=== PATIENT | female | born 2000 | race Caucasian/White ===

== ENCOUNTER 2024-08-01 10:46 | Outpatient (AMB) | payer OTHER, SELFPAY ==
--- NOTE | 2024-08-01 10:47 | MHC.OFFVIS ---
Vital Signs 08/01/24 11:04 Height 5 ft 3 in Weight 143 lb 2 oz BMI 25.4 BP 120/61 Blood Pressure Location Lt brachial Position Sitting Pulse 81 Intake Visit Reasons: Anal fissure Intake Note: Patient is seen in office for evaluation of an anal fissure. Pt c/o: onset few yrs, bleeding with every bm, painful, constipation, straining, last 2 yrs had increase amount of blood, might had a hemorrhoid, went to urgent care and was told is anal fissure, itchy after bm, doing miralax & aloe vera with some relief gives her diarrhea and irritates the area Chip Unloader Required: No Accompanied by: Mother Allergies No Known Allergies Allergy (Verified 08/01/24 11:03) Medication List - Last Reconciled 08/01/24 by Ike Glass MD menthol-zinc oxide 0.44-20.6 % (Calmoseptine) 1 appl topical QID PRN HPI HPI Anal fissure: Details: 24 year female referred for an anal fissure. The patient says she has a long history of constipation since she was a baby. She therefore has had this pain in her anus with bowel movements for about 2 years now. She describes this as a sharp pain like a ?knife? cutting her anus with passage of stools. She says that this fingers as well after bowel movements She frequently sees bright blood per rectum with bowel movements. She also describes itching in the perianal area She states she had been seen last year by a surgeon and was diagnosed to have an anal fissure. She says she was tried on nitroglycerin without a significant improvement. She describes her pain to be severe sometimes She says she was also seen price clerk in the past because of chronic constipation and has been different bowel regimens. She says she has had colonoscopies before as well. [facility] Medical History Anal pain Surgical History H/O dilation and curettage (11/2023) Family History Paternal Aunt Skin cancer Social History Alcohol intake: current Alcohol intake frequency: holidays/special occasions only Review of Systems Const Denies chills and Denies fever(s) Card Denies chest pain, Denies dyspnea and Denies dyspnea on exertion Resp Denies cough, Denies dyspnea and Denies dyspnea on exertion GI Reports hematochezia, Denies change in bowel habits and Reports constipation Denies hematuria Musc Denies back pain and Denies limited range of motion Neuro Denies focal weakness and Denies convulsions Psych Denies depression and Denies mood swings Physical Exam Vital Signs: Last Vital Signs Pulse 81 08/01/24 11:04 BP 120/61 08/01/24 11:04 BMI result Body Mass Index 25.4 Const General: comfortable and no acute distress Orientation/consciousness: patient oriented x3 Neck Neck: Yes no lymphadenopathy Resp Auscultation: clear to auscultation bilaterally Cardio Rhythm: regular rhythm GI Other: Rectal exam shows tenderness in the anal canal, unable to tolerate digital exam. Note of a small chronically sclerosed external hemorrhoid anteriorly, no perianal lesions Palpation (GI): Soft to palpation, nontender and no guarding Neuro General: patient oriented x3 Assessment & Plan Assessment & Plan (1) Anal pain: Code(s): K62.89 - Other specified diseases of anus and rectum Category: Medical Plan: She describes severe anal pain with bowel movements which lingers afterwards. She says she has noticed bright blood as well frequently with bowel movements. She does have a long history of chronic constipation. Exam shows tenderness in the anal canal with hypertonicity. I am therefore unable do a full anoscopy or digital exam. She does state that she was diagnosed to have anal fissure. She says she was tried on nitroglycerin last year but she felt that this has not helped at all. I therefore explained to her the option of proceeding with exam under anesthesia and lateral internal sphincterotomy. I reviewed with the technique of this procedure. I discussed the risks including but not limited to bleeding, infections, sphincter dysfunction, poor healing, postop pain, as well as the benefits and alternatives. I reviewed with her what to expect postoperatively. She says she understands and wants to proceed She also complains of perianal itching so I am going to prescribe her Calmoseptine. Medications: New menthol-zinc oxide 0.44-20.6 % (Calmoseptine) 1 appl topical QID PRN 113 grams 0RF skin irritation around anus Coding Level of Care Code New Pt Level 3 (06787) Diagnoses Anal pain K62.89
[2024-08-01 11:04] VITALS: BP 120/61; PULSE 81; BMI 25.4
--- OUTSIDE RECORDS SUMMARY | 2024-08-01 12:29 | XMS_ITS | Clinical Summary ---
Author Organization [facility] 's Address [address] [place] [address] Care Team Providers Care Nonprofit Financial Controller Name Role Phone Aimee Alejandre MD Primary Care Provider [phone] Source Comments Please note that some or all of the patient's information could have additional privacy protections. State laws allow health care providers to render certain types of treatment to minors without parental consent. Please do not assume that this information can be shared solely by obtaining just the consent of the patient's parent/guardian. Please determine if all or part of the patient's care was rendered without parent/guardian involvement. And, if so, obtain the minor's consent prior to disclosure.[facility] Allergies No known active allergies Medications XOLAIR 150 mg/mL Syringe 12/12/2018 Active Active Problems Problem Noted Date Diagnosed Date Abnormal MRI of head 01/19/2019 Multiple somatic complaints 01/19/2019 Social History Tobacco Use Types Packs/Day Years Used Date Smoking Tobacco: Passive Smo ke Exposure - Never Smoker Comments:outside Comments Unknown Sex and Gender Information Value Date Recorded Sex Assigned at Not on file Legal Sex Female 8:17 PM EDT Gender Identity Not on file Sexual Orientation Not on file Last Filed Vital Signs Vital Sign Reading Time Taken Comments Blood Pressure - - Pulse - - Temperature - - Respiratory Rate - - Oxygen Saturation - - Inhaled Oxygen Concentration - - Weight 81.5 kg (179 lb 10.8 oz) 01/19/2019 9:05 AM EDT Height 162 cm (5' 3.78 ) 01/19/2019 9:05 AM EDT Body Mass Index 31.05 01/19/2019 9:05 AM EDT Plan of Treatment Health Maintenance Due Date Last Done Comments DTaP/TDAP/TD VACCINES (1 - Tdap) 2009 ADOLESCENT HIV SCREENING 07/19/2015 COVID-19 Vaccine ( - 2023-2 5 season) 2023 INFLUENZA (#1) 2023 NIRSEVIMAB VACCINES UNDER 8 MONTHS Aged Out No longer eligible based on patient's age to complete this topic Insurance GENERIC MEDICAID [place]) Care Teams Nonprofit Financial Controller Relationship Specialty Start Date End Date Aimee Alejandre MD [address] [place] [address] PCP - General 07/25/17
--- OUTSIDE RECORDS SUMMARY | 2024-08-01 12:29 | XMS_ITS | Clinical Summary ---
Author Organization [facility] Address [address] [place] [address] [place] [address] Phone Care Team Providers Care Associate School Psychologist Name Role Phone Inderjennifer Zoë LAM Primary Care Provider [phone] Allergies No known active allergies Medications Medication Sig Dispensed Refills Start Date End Date Status CETIRIZINE HCL (ZYRTEC ORAL) Take by mouth. Active RANITIDINE HCL ORAL Take by mouth. A ctive Active Problems No known active problems Social History Tobacco Use Types Packs/Day Years Used Date Smoking Tobacco: Never Assessed Education Answer Date Recorded Are you interested in more education? Not on tara e 08/20/2022 Are you concerned about learning? Not on file 08/20/2022 No 08/20/2022 No 08/20/2022 Digital Access Answer Date Recorded No 09/20/2022 No 09/20/2022 No 09/20/2022 Reliable internet access at home? Not on file 09/20/2022 Device with a working camera? Not on file Sex and Gender Information Value Date Recorded Sex Assigned at Female 04/05/2023 9:36 AM EST Gender Identity Female 04/05/2023 9:36 AM EST Sexual Orientation Straight 04/05/2023 9: 36 AM EST Last Filed Vital Signs Vital Sign Reading Time Taken Comments Blood Pressure - - Pulse 78 12/13/2016 10:21 AM EDT Temperature - - Respiratory Rate - - Oxygen Saturation - - Inhaled Oxygen Concentration - - Weight 65.5 kg (144 lb 4.8 oz) 12/13/2016 10:21 AM EDT Height - - Body Mass Index - - Plan of Treatment Health Maintenance Due Date Last Done Comments Adult Td,Tdap Booster 2002 DEPRESSION SCREENING 2014 SMOKING Hx and SMOKELESS TOBACCO SCREENING 07/19/2015 HPV VACCINES (2 - 3-dose series) 02/14/2018 01/17/2018 CHLAMYDIA SCREENING 2018 HEPATITIS C SCREENING 2020 HIV ONE-TIME SCREENING (18-6 5 YEARS) 2020 PAP SMEAR 07/19/2023 INFLUENZA VACCINE (#1) 2023 0, 01/17/2018 COVID-19 VACCINE (2 - 2023-2 5 season) 2023 08/19/2020 MENINGOCOCCAL VACCINES (ACWY) Completed 02/26/2020 HEPATITIS A VACCINES Aged Out No long er eligible based on patient's age to complete this topic HIB VACCINES Aged Out No longer eligi ble based on patient's age to complete this topic PNEUMOCOCCAL VACCINES (0-49 years) Aged Out No longer eligible b ased on patient's age to complete this topic Medical Devices Not on file Long Bernal Personal/Famil y Self [address] [place] [address] Long Bernal Personal/Famil y Self [address] [place] [address] Long Bernal Personal/Famil y Self [address] [facility] [facility] [place] [address] oLng Bernal Personal/Famil y Self [address] [facility] [facility] [place] [address] Long Bernal Personal/Famil y Self [address] [facility] [place] [address] MARYANN PFEIFFER Personal/Famil y Mother [address] [facility] [facility] [place] [address] MARYANN PFEIFFER Personal/Famil y Mother [address] [facility] [facility] [place] [address] MARYANN PFEIFFER Personal/Famil y Mother [address] [facility] [facility] [place] [address] Care Teams Associate School Psychologist Relationship Specialty Start Date End Date Zoë Mendes, GENARO [address] [place] [address] [email or web address] PCP - General Family Medicine 04/05/23 Additional Source Comments The information contained in this document represents components of the legal health record. It is not the complete legal health record.[facility]
--- OUTSIDE RECORDS SUMMARY | 2024-08-01 12:29 | XMS_ITS ---
Author Name [facility] Organization Unknown Results Test Name/Text Value Interpretation Date Range Source CREAT SERPL MCNC 0.7mg/dL Normal 0.5 - 1 [facility] CALCIUM SERPL [facility] 10mg/dL Normal 8.4 - 10 .2 [facility] SODIUM SERPL SCNC 135mmol/L Normal 135 - 145 [facility] ANION GAP SERPL [facility] 11mmol/L Normal 5 - 14 [facility] HCO3 SER SCNC 21mmol/L Below low normal 24 - 3 2 [facility] GLUCOSE SERPL [facility] 155mg/dL Normal 70 - 199 [facility] BUN SERPL [facility] 8mg/dL Normal 7 - 17 CT [facility] CHLORIDE SERPL [facility] 103mmol/L Normal 98 - 10 7 [facility] POTASSIUM SERPL [facility] 3.9mmol/L Normal 3.5 - 5.1 [facility] NUCLEATED RBC 0% Normal 0 - 1 [facility] LYMPHOCYTES NO. BLD AUTO 0.9K/uL Below low normal [id number] 1 - 3.2 [facility] EOSINOPHIL NO. BLD AUTO 0K/uL Normal [id number] 0 - 0.5 [facility] MONOCYTES NFR BLD AUTO 1.2% Below low normal [id number] 43 2 - 12 [facility] IMMATURE GRANULOCYTE, ABSOLUTE 0.08k/uL Normal [id number] - 0.1 [facility] LYMPHOCYTES NFR BLD AUTO 5.5% Below low normal [id number] 1743 20 - 48 [facility] EOSINOPHIL NFR BLD AUTO 0% Normal [id number] 0 - 6 [facility] NEUTROPHILS NO. BLD AUTO 14.4K/uL Above high normal [id number] 1.8 - 7.8 [facility] BASOPHILS NFR BLD AUTO 0.2% Normal 0 - 2 [facility] MONOCYTES NO. BLD AUTO 0.2K/uL Normal 0 - 0.8 [facility] NEUTROPHILS NFR BLD AUTO 92.6% Above high normal [id number] 44 - 74 [facility] IMMATURE GRANULOCYTE, PERCENT 0.5% Normal 0 - 1 [facility] BASOPHILS IN BLOOD BY AUTOMATED COUNT 0K/uL Normal 0 - 0.2 [facility] [place] NO. BLD AUTO 404K/uL Normal 150 - 450 [facility] RBC NO. BLD AUTO 4.17M/uL Below low normal 4.2 - 5.4 [facility] MCH RBC QN AUTO 29.3pg Normal 25 - 33 [facility] MCHC RBC AUTO MCNC 33.3g/dL Normal 32 - 36 [facility] HGB BLD MCNC 12.2g/dL Below low normal 12.5 - 16 [facility] WBC NO. BLD AUTO 15.5K/uL Above high normal [id number] 4 - 10.5 [facility] MCV RBC AUTO 87.8fL Normal 78 - 100 [facility] PMV BLD AUTO 8.7fL Normal [id number] 7.4 - 11.4 [facility] RDW RBC AUTO RTO 14.5% Normal 12.1 - 16. 2 [facility] HCT VFR BLD AUTO 36.6% Below low normal 37 - 47 [facility] S pyo Ag Throat Ql IA rapid Normal [id number] [facility] Encounters Encounter Type Encounter Reason Primary Diagnosis Location Date Emergency Acute tonsillitis, unspecified Acute tonsillitis, unspecified [facility] 04/05/2023 Care Team Organization Name Specialty Phone Email Start Date End Da tamera [facility] 05/15/2023 [facility] 2022 [facility] Primary Care 04/0504/05/2023
--- OUTSIDE RECORDS SUMMARY | 2024-08-01 12:29 | XMS_ITS | Clinical Summary ---
Author Organization [facility] Address [address] [place] [address] Care Team Providers Care Accounting Director Name Role Phone Omar Oconnell GRZEGORZ Primary Care Provider [phone] Allergies No known active allergies Medications No known medications Active Problems No known active problems Social History Tobacco Use Types Packs/Day Years Used Date Smoking Tobacco: Never Assessed Sex and Gender Information Value Date Recorded Sex Assigned at Female 04/05/2023 12:00 PM EST Gender Identity Not on file Sexual Orientation Not on file Job Start Date Occupation Industry Not on file Not on file Not on file Last Filed Vital Signs Vital Sign Reading Time Taken Comments Blood Pressure 130/65 04/05/2023 2:42 PM EST Pulse 96 04/05/2023 2:42 PM EST Temperature 38.1 ??C (100.6 ??F) 04/05/2023 2:[address] Respiratory Rate 18 04/05/2023 2:42 PM EST Oxygen Saturation 100% 04/05/2023 2:42 PM EST Inhaled Oxygen Concentration - - Weight 79.4 kg (175 lb) 04/05/2023 11:44 AM EST Height - - Body Mass Index - - Plan of Treatment Health Maintenance Due Date Last Done Comments Hepatitis B Vaccines (1 of 3 - 3-dose series) 2002 Hepatitis C Screening 2002 Depression Screening 2014 Gonorrhea and Chlamydia Screening 07/19/2015 Preventative Health Evaluation 2020 DTap / Tdap / Td (1 - Tdap) 2021 Cervical Cancer Screening (P ap Smear) 07/19/2023 COVID-19 Vaccine ( - 2023-2 5 season) 2023 09/16/2020 Influenza Vaccine (#1) 2023 Pneumococcal Vaccine Aged Out No long er eligible based on patient's age to complete this topic RSV Ped < 20 months Aged Out No longe r eligible based on patient's age to complete this topic Care Teams Accounting Director Relationship Specialty Start Date End Date Omar Oconnell DMD [address] [facility] [place] [address] PCP - General Dentistry 04/05/23
--- OUTSIDE RECORDS SUMMARY | 2024-08-01 12:29 | XMS_ITS ---
Author Organization [facility] Address [address] [address] Care Team Providers Care Basketballs And Footballs Reverser Name Role Phone UKO-KAM, SAMUEL Primary Care Provider Valentina Quintero Unavailable [phone] Encounters Encounter Location Date Provider Diagnosis [facility] [address] [place] [phone] 04/10/2024 Valentina Paredes Plan Of Treatment No Information Progress Notes * KEKE SUTTONDOB:0 2000 (23 yo F)Acc No.[id number]:04/10/2024 Patient:?KEKE SUTTON :2000???Age:23 Y???Sex:Female Phone: Address:[address] [facility] , [place], [address] * true * Date:? Generated for Printi adelaida/Fadestineyg/eTransmitting on:?08/01/2024 12:29 PM EDT
--- OUTSIDE RECORDS SUMMARY | 2024-08-01 12:30 | XMS_ITS ---
Author Organization [facility] Address [address] [facility] [address] [place] [address] Care Team Providers Care Thermal Engineer Name Role Phone SAMUEL GARCIA Primary Care Provider Valentina Quintero Unavailable [phone] REASON FOR VISIT NEW PT: RECTAL BLEEDING, CONSTIPATION, BLOATING, VOMITING INS [facility] PCP DR. ELIEZER TELLEZ Encounters Encounter Location Date Provider Diagnosis [facility] [address] [facility] [address] [place] [address] 04/10/2024 Valentina Paredes Plan Of Treatment No Information Progress Notes * KEKE SUTTONDOB:0 2000 (24 yo F)Acc No.[id number]:04/10/2024 Progress Notes Patient:?KEKE SUTTON Provider:?Valentina Andrew M.D. :2000???Age:23 Y???Sex:Female D ate:04/10/2024 Phone: Address:[address] [place] [address] [place] [id number] Pcp:SAMUEL GARCIA Subjective: * Chief Complaints: * ???1. NEW PT: RECTAL BLEEDIN G, CONSTIPATION, BLOATING, VOMITING INS [facility] PCP DR. JAYDEN TELLEZ. * Medical History:? Objective: * Vitals:? Assessment: Plan: * Treatment: * * Electronic signature of Jewels Paredes MD on 08/01/2024 at 12:30 PM EDT Sign off status: Pending * Provider:?Valentina Andrew M.D. Date :?04/10/2024 Generated for Karl son/Jessica/eTransmitting on:?08/01/2024 12:30 PM EDT
--- OUTSIDE RECORDS SUMMARY | 2024-08-01 12:30 | XMS_ITS ---
Author Organization [facility] Address [address] [address] Care Team Providers Care Special Needs Babysitter Name Role Phone UKO-ABAGLORIA, SAMUEL Primary Care Provider Valentina Quintero Unavailable [phone] Encounters Encounter Location Date Provider Diagnosis [facility] [address] [place] [phone] 03/26/2024 Valentina Paredes Plan Of Treatment No Information Progress Notes * KEKE SUTTONDOB:0 2000 (23 yo F)Acc No.[id number]:03/26/2024 Patient:?KEKE SUTTON :2000???Age:23 Y???Sex:Female Phone: Address:[address] [facility] , [place], [address] * true * Date:? Generated for Printi adelaida/Fadestineyg/eTransmitting on:?08/01/2024 12:30 PM EDT
--- OUTSIDE RECORDS SUMMARY | 2024-08-01 12:30 | XMS_ITS | Clinical Summary ---
Author Organization [facility] ity Address [address] [place] [address] Care Team Providers Care Wallpaper Embosser Helper Name Role Phone Omar Oconnell DMD Primary Care Provider [phone] Immunizations Name Administration Dates Next Due Moderna SARS-CoV-2 COVID-19, mRNA, LNP-S, preservative free 09/16/2020 Social History Tobacco Use Types Packs/Day Years Used Date Smoking Tobacco: Never Assessed Comments Unknown Sex and Gender Information Value Date Recorded Sex Assigned at Not on file Legal Sex Female 9:17 PM EST Gender Identity Not on file Sexual Orientation Not on file Obstetrics History Plan of Treatment Health Maintenance Due Date Last Done Comments Gonorrhea/Chlamydia Screening 2002 HPV Vaccines (1 - 3-dose series) 2017 Meningococcal B Vaccine (1 o f 2 - Standard) 2018 DTaP,Tdap,and Td Vaccines (1 - Tdap) 2021 Hepatitis B Vaccines (1 of 3 - 19+ 3-dose series) 2021 Depression Screening 05/25/2023 HIV Screening 05/25/2023 Hepatitis C Screening 05/25/2023 Social Influencers of Health Screening 05/25/2023 Cervical Cancer Screening: P ap Smear 07/19/2023 COVID-19 Vaccine (2 - 2023-2 5 season) 2023 09/16/2020 Influenza Vaccine (#1) 2023 HIB Vaccines Aged Out No longer eligi ble based on patient's age to complete this topic Hepatitis A Vaccines Aged Out No long er eligible based on patient's age to complete this topic IPV Vaccines Aged Out No longer eligi ble based on patient's age to complete this topic MMR Vaccines Aged Out No longer eligi ble based on patient's age to complete this topic Meningococcal ACWY Vaccine Aged Out N o longer eligible based on patient's age to complete this topic Pneumococcal Vaccine: Pediat rics (0 to 5 Years) and At-Risk Patients (6 to 64 Years) Aged Out No longer eligi ble based on patient's age to complete this topic RSV Immunization Patients Un crystal 20 months Aged Out No longer eligible b ased on patient's age to complete this topic Varicella Vaccines Aged Out No longer eligible based on patient's age to complete this topic Care Teams Wallpaper Embosser Helper Relationship Specialty Start Date End Date Omar Oconnell DMD [address] [place] [address] PCP - General 04/05/23
--- OUTSIDE RECORDS SUMMARY | 2024-08-01 12:30 | XMS_ITS | Patient Health Record ---
Author Organization [facility] Address [address] [address] Care Team Providers Care Lamp Shade Sewer Name Role Phone UKO-ABASI, SAMUEL Primary Care Provider Valentina Quintero Unavailable [phone] Reason For Referral No Information Encounters Encounter Location Date Provider Diagnosis [facility] [address] [address] 03/26/2024 Valentina Paredes [facility] [address] [address] 04/10/2024 Valentina Paredes Plan Of Treatment No Information
== END 2024-08-01 11:25 | disposition home or self-care (01) ==
LOC: HO.HGS 10:47
PROVIDERS: PCP Nurse Practitioner Family; Visit Provider Surgery
DX: K62.89 Other specified diseases of anus and rectum (principal)
CPT/HCPCS: 99203

== ENCOUNTER 2024-08-14 09:34 | Day surgery (SDC) | payer OTHER, SELFPAY ==
--- OUTSIDE RECORDS SUMMARY | 2024-08-08 11:15 | XMS_ITS ---
Author Organization [facility] Address [address] [facility] [address] [place] [address] Care Team Providers Care Chief Nuclear Medicine Technologist Name Role Phone SAMUEL GARCIA Primary Care Provider Valentina Quintero Unavailable [phone] REASON FOR VISIT NEW PT: RECTAL BLEEDING, CONSTIPATION, BLOATING, VOMITING INS [facility] PCP DR. ELIEZER TELLEZ Encounters Encounter Location Date Provider Diagnosis [facility] [address] [facility] [address] [place] [address] 04/10/2024 Valentina Paredes Plan Of Treatment No Information Progress Notes * KEKE SUTTONDOB:0 2000 (24 yo F)Acc No.[id number]:04/10/2024 Progress Notes Patient:?KEKE SUTTON Provider:?Valentina Andrew M.D. :2000???Age:23 Y???Sex:Female D ate:04/10/2024 Phone: Address:[address] [place] [address] [place] [id number] Pcp:SAMUEL GARCIA Subjective: * Chief Complaints: * ???1. NEW PT: RECTAL BLEEDIN G, CONSTIPATION, BLOATING, VOMITING INS [facility] PCP DR. JAYDEN TELLEZ. * Medical History:? Objective: * Vitals:? Assessment: Plan: * Treatment: * * Electronic signature of Jewels Paredes MD on 08/08/2024 at 11:15 AM EDT Sign off status: Pending * Provider:?Valentina Andrew M.D. Date :?04/10/2024 Generated for Karl son/Jessica/eTransmitting on:?08/08/2024 11:15 AM EDT
--- OUTSIDE RECORDS SUMMARY | 2024-08-08 11:15 | XMS_ITS ---
Author Organization [facility] Address [address] [address] Care Team Providers Care Multimedia Editor Name Role Phone UKO-KAM, SAMUEL Primary Care Provider Valentina Quintero Unavailable [phone] Encounters Encounter Location Date Provider Diagnosis [facility] [address] [place] [address] 04/10/2024 Valentina Paredes Plan Of Treatment No Information Progress Notes * KEKE SUTTONDOB:0 2000 (23 yo F)Acc No.[id number]:04/10/2024 Patient:?KEKE SUTTON :2000???Age:23 Y???Sex:Female Phone: Address:[address] [facility] , [place], [address] * true * Date:? Generated for Printi adelaida/Fadestineyg/eTransmitting on:?08/08/2024 11:14 AM EDT
--- OUTSIDE RECORDS SUMMARY | 2024-08-08 11:15 | XMS_ITS | Clinical Summary ---
Author Organization [facility] Address [address] [place] [address] [place] [address] Phone Care Team Providers Care Casual Shoe Inspector Name Role Phone Inderjennifer Zoë LAM Primary Care Provider [phone] Allergies No known active allergies Medications Medication [...] this topic Medical Devices Not on file Care Teams Casual Shoe Inspector Relationship Specialty Start Date End Date Zoë Mendes, GENARO [address] [facility] [address] [place] [address] [email or web address] PCP - General Family Medicine 04/05/23 Additional Source Comments The information contained in this document represents components of the legal health record. It is not the complete legal health record.[facility]
--- OUTSIDE RECORDS SUMMARY | 2024-08-08 11:15 | XMS_ITS ---
Author Organization [facility] Address [address] [address] Care Team Providers Care Varsity Baseball Coach Name Role Phone UKO-ABAGLORIA, SAMUEL Primary Care Provider Valentina Quintero Unavailable [phone] Encounters Encounter Location Date Provider Diagnosis [facility] [address] [place] [address] 03/26/2024 Valentina Paredes Plan Of Treatment No Information Progress Notes * KEKE SUTTONDOB:0 2000 (23 yo F)Acc No.[id number]:03/26/2024 Patient:?KEKE SUTTON :2000???Age:23 Y???Sex:Female Phone: Address:[address] [facility] , [place], [address] * true * Date:? Generated for Printi adelaida/Fadestineyg/eTransmitting on:?08/08/2024 11:15 AM EDT
--- OUTSIDE RECORDS SUMMARY | 2024-08-08 11:15 | XMS_ITS | Clinical Summary ---
Author Organization [facility] Address [address] [place] [address] Care Team Providers Care Cut Off Machine Unloader Name Role Phone Omar Oconnell GRZEGORZ Primary Care Provider [phone] Allergies No known active allergies Medications No [...] age to complete this topic Care Teams Cut Off Machine Unloader Relationship Specialty Start Date End Date Omar Oconnell DMD [address] [facility] [place] [address] PCP - General Dentistry 04/05/23
--- OUTSIDE RECORDS SUMMARY | 2024-08-08 11:15 | XMS_ITS | Clinical Summary ---
Author Organization [facility] ity Address [address] [place] [address] Care Team Providers Care Escrow Agent Name Role Phone Omar Oconnell DMD Primary Care Provider [phone] Immunizations Name Administration Dates Next Due Moderna [...] 2023-2 5 season) 2023 09/16/2020 Influenza Vaccine (Season Ended) 2024 HIB Vaccines Aged Out No longer eligi [...] age to complete this topic Care Teams Escrow Agent Relationship Specialty Start Date End Date Omar Oconnell DMD [address] [place] [address] PCP - General 04/05/23
--- OUTSIDE RECORDS SUMMARY | 2024-08-08 11:15 | XMS_ITS | Patient Health Record ---
Author Organization [facility] Address [address] [address] Care Team Providers Care Roll Capper Name Role Phone UKO-ABASI, SAMUEL Primary Care Provider Valentina Quintero Unavailable [phone] Reason For Referral No Information Encounters Encounter Location Date Provider Diagnosis [facility] [address] [address] 03/26/2024 Valentina Paredes [facility] [address] [address] 04/10/2024 Valentina Paredes Plan Of Treatment No Information
--- OUTSIDE RECORDS SUMMARY | 2024-08-08 11:15 | XMS_ITS | Clinical Summary ---
Author Organization [facility] Address [address] [place] [address] Care Team Providers Care Information Assurance Officer Name Role Phone Aimee Alejandre MD Primary Care Provider [phone] Source Comments Please note that some or [...] obtain the minor's consent prior to disclosure.[facility] Allergies No known active allergies Medications [...] topic Insurance GENERIC MEDICAID (NON-CT) Care Teams Information Assurance Officer Relationship Specialty Start Date End Date Aimee Alejandre MD [address] [place] [address] PCP - General 07/25/17
--- NOTE | 2024-08-09 15:32 | HO.ANESPROP2 ---
Documented by User: Marley Rangel NP 08/09/24 15:32 HPI - Anesthesia Eval Consult details Narrative: 24yo F for EUA lateral Internal Sphincterotomy PMFSH Active Problems Active Problems: All Active Problems Anal pain (Acute) Past Medical History Medical History Anal pain Family History Family History Paternal Aunt Skin cancer Surgical History Surgical History H/O dilation and curettage (11/2023) Social History Social History Alcohol intake: current Alcohol intake frequency: holidays/special occasions only Comment: medicated Patient Tobacco Use Status: Current everyday Tobacco user Tobacco use type: Smokeless Tobacco Frequency of e-Cigarette/Vaping Use: daily Use of substances other than those prescribed or required for medical reasons: No Advance Directives: No Advance Directives Information Provided: Yes Patient : No Meds Allergies Allergy/AdvReac Type Severity Reaction Status Date / Time No Known Allergies Allergy Verified 08/14/24 09:53 Assessment and Plan Assessment Anesthesia Assessment: Chart Reviewed Documented by User: Tyrese Varner MD 08/14/24 13:22 PMFSH Past Medical History Medical History Anal pain Patient : No Family History Family History Paternal Aunt Skin cancer Family history of problems with anesthesia: No Surgical History Surgical History H/O dilation and curettage (11/2023) History of Problems with Anesthesia: No Social History Social History Alcohol intake: current Alcohol intake frequency: holidays/special occasions only Comment: medicated Patient Tobacco Use Status: Current everyday Tobacco user Tobacco use type: Smokeless Tobacco Frequency of e-Cigarette/Vaping Use: daily Use of substances other than those prescribed or required for medical reasons: No Advance Directives: No Advance Directives Information Provided: Yes Patient : No Meds Allergies Allergy/AdvReac Type Severity Reaction Status Date / Time No Known Allergies Allergy Verified 08/14/24 09:53 Exam Airway Mallampati Class: II TM Dist: <=3cm Neck ROM: Full Loose/Missing/Broken Teeth: No Heart: ok Lungs: ok Assessment and Plan Assessment Anesthesia Assessment: Anesthesia Plan Discussed Final Anesthetic Review Family History of Problems with Anesthesia: No History of Problems with Anesthesia: No NPO: Yes ASA Class: I Final Preanesthetic Review: No Changes in Pt Med Stat, Meds/Allgs Chart Reviewed, Consent Obtained/Reviewed and Anes Risks/Benef Reviewed Patient Risk: Low Procedure Risk: Low Anesthetic Plan Anesthetic Plan: GA and Agree w/ Assess. and Plan Disposition: Standard PACU
[2024-08-14] VITALS (9 sets, daily range): BP systolic 88–113; BP diastolic 38–71; PULSE 61–79; RESP 14–20; TEMP 36.7–37.3; O2SAT 97–100; BMI 25.0
[2024-08-14 10:08] LABS: UPreg QC Valid YES; Urine Pregnancy NEGATIVE (NEGATIVE)
--- NOTE | 2024-08-14 10:12 | MHC.SHP ---
Pre-Procedural Eval Section A - 24 Hr Update-Section A only Date of Service: 08/14/24 The patient is an INPATIENT: No Changes since office visit: No Cold of Flu in the past 2 weeks, No New Medical Problems, No Changes in Medication and No Patient answered all questions The patient has been examined within 24 hours of the surgical procedure. The History & Physical has been completed within 30 days and I have reviewed it.: Yes Section B - Complete if H&P > 30 days Chief Complaint: Other specified diseases of anus and rectum Allergies: Allergies Allergy/AdvReac Type Severity Reaction Status Date / Time No Known Allergies Allergy Verified 08/14/24 09:53 Plan I have reviewed the history and physical and performed a pertinent physical examination on my patient. No changes have occurred unless specified. Time Spent With Patient Time: Total time managing care of this patient today ____ minutes.
[2024-08-14] MEDS: Lactated Ringers 1,000 ML 100 ML IVCONT (10:24)
[2024-08-14] MEDS: cefoTEtan disodium 2 GM VIAL IVPUSH (10:35)
--- NOTE | 2024-08-14 10:59 | P.OP_ITS ---
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 She had stated that she was diagnosed to have an anal fissure before and was supposed to have surgery which she was unable to do. She also wanted an external hemorrhoid removed. She understood the technique of exam under anesthesia, sphincterotomy and excisi on of the external hemorrhoid. She was aware of the risks, benefits, and alternatives. She was brought to the operating room. She was placed in prone conor-knife position under general anesthesia via laryngeal mask airway. The buttocks were retracted with wide tape laterally. The perianal area was prepped and draped in the usual sterile fashion. A surgical time-out was done. The patient received Cefotan 2 g IV preoperatively There was note of a small chronically sclerosed external hemorrhoid at the anal verge anteriorly. This was about 0.75 cm. There was note of a small anterior midline fissure as well I inserted the Trinity Davis retractor. I examined the anal canal circumferentially and there were no other lesions seen I therefore proceeded to do a sphincterotomy on the left side. I made a short incision on the skin overlying the intersphincteric groove with a blade 15. Then bluntly dissected down to expose the internal sphincter fibers. I placed a hemostat in the intersphincteric space hemorrhoidectomy external sphincters. I proceeded to divide the internal sphincter fibers just enough to decrease hypertonicity I then closed this incision with a running chromic 3-0 stitch. I then excised the small external hemorrhoid using a blade 15. I closed this incision with a chromic 3-0 stitch. Hemostasis was again confirmed. I then infiltrated the perianal area with Marcaine 0.5% for postop analgesia. The procedure was then completed The patient tolerated the procedure well. There were no immediate complications. Initial and final counts of sponges and instruments were correct. Estimated blood loss was does not 25 cc. The patient was extubated without difficulty and transferred to the recovery room with stable vital signs
[2024-08-14] MEDS: fentaNYL citrate/PF 100 MCG/2 ML VIAL 50 MCG IVPUSH (11:29)
[2024-08-14] MEDS: oxyCODONE HCl Immed Release 5 MG TABLET PO (11:37)
[2024-08-14] MEDS: Acetaminophen 325 MG TABLET 975 MG PO (11:38)
== END 2024-08-14 12:37 | disposition home or self-care (01) ==
PROVIDERS: Nurse Practitioner; PCP Nurse Practitioner Family; Visit Provider Surgery
PROC: (CPT 46200; principal; 2024-08-14 10:50)
DX: K62.89 Other specified diseases of anus and rectum (principal); G89.29 Other chronic pain; K60.1 Chronic anal fissure; K64.3 Fourth degree hemorrhoids; K59.09 Other constipation; Z79.899 Other long term (current) drug therapy
CPT/HCPCS: 46200; 46320; 81025; J1885; J2003; J2405; J2704; J2795; J3010

== ENCOUNTER → 2024-08-14 09:34 | Outpatient (BNV) | payer OTHER, SELFPAY | PROVIDERS: PCP Nurse Practitioner Family; Visit Provider Surgery | DX: K60.2 Anal fissure, unspecified (principal) | CPT/HCPCS: 46080 ==

== ENCOUNTER 2024-08-27 13:36 | Outpatient (AMB) | payer OTHER, SELFPAY ==
[2024-08-27 13:37] VITALS: BP 121/56; PULSE 93; O2SAT 98; BMI 24.1
--- NOTE | 2024-08-27 13:37 | MHC.OFFVIS ---
Vital Signs 08/27/24 13:37 Height 5 ft 3 in Weight 136 lb 3.931 oz BMI 24.1 BP 121/56 L Blood Pressure Location Lt brachial Position Sitting Pulse 93 Pulse Source Pulse Oximeter Pulse Oximetry (%) 98 Oxygen Delivery Method Room Air Intake Visit Reasons: S/P EUA, lateral internal sphincterotomy Intake Note: Patient here s/p left lateral internal sphincterotomy, excision of sclerosed external hemorrhoid. Patient c/o: having sharp painful burning when having a bowel movement Surgery: 08-14-2024 Allergies No Known Allergies Allergy (Verified 08/27/24 13:40) HPI HPI S/P EUA, lateral internal sphincterotomy: Details: She underwent lateral internal sphincterotomy for an anal fissure and excision of a sclerosed external hemorrhoid last 08/14/2024 in the operating room. She tolerated procedure well She denies new complaints. She does admit to pain on the surgical site. [facility] Medical History Anal pain Surgical History History of rectal sphincterotomy (08/14/24) H/O dilation and curettage (11/2023) Family History Paternal Aunt Skin cancer Social History Alcohol intake: current Alcohol intake frequency: holidays/special occasions only Comment: medicated Patient Tobacco Use Status: Current everyday Tobacco user Tobacco use type: Smokeless Tobacco Review of Systems Const Denies chills and Denies fever(s) Card Denies chest pain Resp Denies cough GI Denies abdominal pain Physical Exam Vital Signs: Last Vital Signs Pulse 93 08/27/24 13:37 BP 121/56 L 08/27/24 13:37 Pulse Ox 98 08/27/24 13:37 Oxygen Delivery Method Room Air 08/27/24 13:37 BMI result Body Mass Index 24.1 Const General: comfortable and no acute distress Resp Effort & Inspection: normal respiratory effort GI Other: Rectal exam shows the sphincterotomy site to be healing, excision site also healing well without any evidence of any infection Assessment & Plan Assessment & Plan (1) Anal pain: Code(s): K62.89 - Other specified diseases of anus and rectum Category: Medical Plan: She had anal fissure found on some under anesthesia. She therefore underwent lateral internal sphincterotomy as well as excision of a sclerosed external hemorrhoid Her surgical sites are healing well. There was no evidence of any infection. I advised her to continue to do hot Sitz baths. I also advised her on avoiding straining and constipation but she does state that she has a history of chronic constipation and awaiting consultation with a collection systems foreman She can follow up on a p.r.n. basis. Coding Level of Care Code Global (09328) Diagnoses Anal pain K62.89
--- OUTSIDE RECORDS SUMMARY | 2024-08-27 15:04 | XMS_ITS | Clinical Summary ---
Author Organization [facility] Address [address] [place] [address] Care Team Providers Care Tailor Women'S Garment Alteration Name Role Phone Aimee Alejandre MD Primary Care Provider [phone] Source Comments Please note that some or [...] so, obtain the minor's consent prior to disclosure.[facility] Allergies No known active allergies Medications [...] topic Insurance GENERIC MEDICAID (NON-CT) Care Teams Tailor Women'S Garment Alteration Relationship Specialty Start Date End Date Aimee Alejandre MD [address] [place] [address] PCP - General 07/25/17
--- OUTSIDE RECORDS SUMMARY | 2024-08-27 15:04 | XMS_ITS ---
Author Organization [facility] Address [address] [address] Care Team Providers Care Geriatric Care Manager Name Role Phone UKO-KAM, SAMUEL Primary Care Provider Valentina Quintero Unavailable [phone] Encounters Encounter Location Date Provider Diagnosis [facility] [address] [place] [address] 04/10/2024 Valentina Paredes Plan Of Treatment No Information Progress Notes * KEKE SUTTONDOB:0 2000 (23 yo F)Acc No.[id number]:04/10/2024 Patient:?KEKE SUTTON :2000???Age:23 Y???Sex:Female Phone: Address:[address] [facility] , [place], [address] * true * Date:? Generated for Printi adelaida/Fadestineyg/eTransmitting on:?08/27/2024 03:04 PM EDT
--- OUTSIDE RECORDS SUMMARY | 2024-08-27 15:04 | XMS_ITS | Clinical Summary ---
Author Organization [facility] Address [address] [place] [address] Care Team Providers Care Black Top Machine Operator Name Role Phone Omar Oconnell GRZEGORZ Primary Care Provider [phone] Allergies No known active allergies Medications No [...] Screening (P ap Smear) 07/19/2023 COVID-19 Vaccine (2023-2 5 season) 2023 09/16/2020 Influenza Vaccine (#1) 2023 Pneumococcal Vaccine Aged Out No long er eligible based on patient's age to complete this topic RSV Ped < 20 months Aged Out No longe r eligible based on patient's age to complete this topic Care Teams Black Top Machine Operator Relationship Specialty Start Date End Date Omar Oconnell DMD [address] [facility] [address] PCP - General Dentistry 04/05/23
--- OUTSIDE RECORDS SUMMARY | 2024-08-27 15:04 | XMS_ITS | Clinical Summary ---
Author Organization [facility] Address [address] [place] [address] [place] [address] Phone Care Team Providers Care Manager Fixed Income Name Role Phone Inderjennifer Zoë LAM Primary Care Provider [phone] Allergies No known active allergies Medications Medication [...] Self [address] [place] [address] Long Bernal Personal/Famil y Self [address] [place] [address] Long Bernal Personal/Famil y Self 2000 [address] [facility] [place] [address] Long Bernal Personal/Famil y Self 2000 [address] [facility] [place] [address] Long Bernal Personal/Famil y Self 2000 [address] [facility] [place] [address] MARYANN PFEIFFER Personal/Famil y Mother 1983 [address] [facility] [place] [address] MARYANN PFEIFFER Personal/Famil y Mother 1983 [address] [facility] [place] [address] MARYANN PFEIFFER Personal/Famil y Mother 1983 [address] [facility] [place] [address] Care Teams Manager Fixed Income Relationship Specialty Start Date End Date Zoë Mendes, GENARO [address] [facility] [address] [place] [address] [email or web address] PCP - General Family Medicine 04/05/23 Additional Source Comments The information contained in this document represents components of the legal health record. It is not the complete legal health record.[facility]
--- OUTSIDE RECORDS SUMMARY | 2024-08-27 15:05 | XMS_ITS | Patient Health Record ---
Author Organization [facility] Address [address] [address] Care Team Providers Care Botany Technician Name Role Phone UKO-ABASI, SAMUEL Primary Care Provider Valentina Quintero Unavailable [phone] Reason For Referral No Information Encounters Encounter Location Date Provider Diagnosis [facility] [address] [address] 03/26/2024 Valentina Paredes [facility] [address] [address] 04/10/2024 Valentina Paredes Plan Of Treatment No Information
--- OUTSIDE RECORDS SUMMARY | 2024-08-27 15:05 | XMS_ITS ---
Author Organization [facility] Address [address] [facility] [address] [place] [address] Care Team Providers Care Aircraft Systems Repairer Name Role Phone SAMUEL GARCIA Primary Care Provider Valentina Quintero Unavailable [phone] REASON FOR VISIT NEW PT: RECTAL BLEEDING, CONSTIPATION, BLOATING, VOMITING INS [facility] PCP DR. ELIEZER TELLEZ Encounters Encounter Location Date Provider Diagnosis [facility] [address] [facility] [address] [place] [address] 04/10/2024 Valentina Paredes Plan Of Treatment No Information Progress Notes * KEKE SUTTONDOB:0 2000 (24 yo F)Acc No.[id number]:04/10/2024 Progress Notes Patient:?KEKE SUTTON Provider:?Valentina Andrew M.D. :2000???Age:23 Y???Sex:Female D ate:04/10/2024 Phone: Address:[address] [place] [address] [phone] Pcp:SAMUEL GARCIA Subjective: * Chief Complaints: * ???1. NEW PT: RECTAL BLEEDIN G, CONSTIPATION, BLOATING, VOMITING INS [facility] PCP DR. JAYDEN TELLEZ. * Medical History:? Objective: * Vitals:? Assessment: Plan: * Treatment: * * Electronic signature of Jewels Paredes MD on 08/27/2024 at 03:05 PM EDT Sign off status: Pending * Provider:?Valentina Andrew M.D. Date :?04/10/2024 Generated for Margareti adelaida/Jessica/eTransmitting on:?08/27/2024 03:05 PM EDT
--- OUTSIDE RECORDS SUMMARY | 2024-08-27 15:05 | XMS_ITS | Clinical Summary ---
Author Organization [facility] ity Address [address] [place] [address] Care Team Providers Care Machine Operator Farmworker Name Role Phone Omar Oconnell DMD Primary Care Provider [phone] Immunizations Name Administration Dates Next Due Moderna [...] age to complete this topic Care Teams Machine Operator Farmworker Relationship Specialty Start Date End Date Omar Oconnell DMD [address] [place] [address] PCP - General 04/05/23
--- OUTSIDE RECORDS SUMMARY | 2024-08-27 15:05 | XMS_ITS ---
Author Organization [facility] Address [address] [address] Care Team Providers Care Small Kick Press Operator Name Role Phone UKO-ABAGLORIA, SAMUEL Primary Care Provider Valentina Quintero Unavailable [phone] Encounters Encounter Location Date Provider Diagnosis [facility] [address] [place] [address] 03/26/2024 Valentina Paredes Plan Of Treatment No Information Progress Notes * KEKE SUTTONDOB:0 2000 (23 yo F)Acc No.[id number]:03/26/2024 Patient:?KEKE SUTTON :2000???Age:23 Y???Sex:Female Phone: Address:[address] [facility] , [place], [address] * true * Date:? Generated for Printi adelaida/Fadestineyg/eTransmitting on:?08/27/2024 03:05 PM EDT
== END 2024-08-27 13:57 | disposition home or self-care (01) ==
LOC: HO.HGS 13:37
PROVIDERS: PCP Nurse Practitioner Family; Visit Provider Surgery
DX: K62.89 Other specified diseases of anus and rectum (principal)
CPT/HCPCS: 99024